=== PATIENT | female | born 1945 | race African-American/Black ===

== ENCOUNTER 2024-02-12 10:18 | Emergency (ER) | payer OTHER, MEDICAID ==
[~2024-02-12] VITALS: Ht 170.2 cm; Wt 67.3 kg
[~2024-02-12 10:18] MED LIST: LOSA-381 PO; PANT-31 PO
[2024-02-12 10:30] VITALS: TEMP 98.5
[2024-02-12] MEDS: LORazepam 2 MG/ML VIAL IVP ONE (11:12)
[2024-02-12 11:14] LABS: HEMATOCRIT 27.9 % (36-46); HEMOGLOBIN 8.8 g/dL (12.0-16.0); MEAN CORPUSCULAR HEMOGLOBIN 20.7 pg (26.0-34.0); MEAN CORPUSCULAR HGB CONC 31.5 G/dL (31.0-37.0); MEAN CORPUSCULAR VOLUME 66 fL (80-100); PLATELET COUNT (AUTO) 330 K/uL (150-450); RED BLOOD CELL COUNT(AUTO) 4.25 MIL/uL (4.00-5.20); RED CELL DISTRIBUTION WIDTH 25.3 % (11.5-14.5); WHITE BLOOD COUNT (AUTO) 6.1 K/uL (4.5-11.0)
[2024-02-12 11:20] LABS: PROTHROMBIN TIME 11.4 SEC (9.4-11.6)
[2024-02-12 11:25] LABS: BAND NEUTROPHILS % (MANUAL) 1 % (0-5); LYMPHOCYTES % (MANUAL) 39 % (22-44); MONOCYTES % (MANUAL) 3 % (2-9); SEGMENTED NEUTROPHILS % 57 % (40-70); TOTAL CELLS COUNTED 100
[2024-02-12 11:26] LABS: RBC MORPHOLOGY COMMENT ABNORMAL RBC MORPH
[2024-02-12 11:35] LABS: ANION GAP 10 mmol/L (8-16); CALCIUM, TOTAL 9.3 mg/dL (8.8-10.5); CARBON DIOXIDE 28 mmol/L (22-29); CHLORIDE 105 mmol/L (98-107); CREATININE 0.66 mg/dL (0.60-1.30); GLOMERULAR FILTR. RATE CALC > 60 mL/min (>60); GLUCOSE,RANDOM 87 mg/dL (70-110); POTASSIUM 3.5 mmol/L (3.5-5.1); SODIUM SERUM 143 mmol/L (136-145); UREA NITROGEN, BLOOD 10 mg/dL (7-18)
[2024-02-12 11:42] LABS: ALANINE AMINOTRANSFERASE 8 U/L (12-78); ALKALINE PHOSPHATASE 68 U/L (46-116); ASPARTATE AMINOTRANSFERASE 13 U/L (15-37); BILIRUBIN,TOTAL 0.7 mg/dL (0.1-1.0); CHOL/HDL RATIO 6.4 (3.9-5.7); CHOLESTEROL 300 mg/dL (131-200); HDL CHOLESTEROL 47 mg/dL (40-60); LDL CHOL (CALC.) 227 mg/dL (0-130); TOTAL PROTEIN, SERUM 6.7 g/dL (6.4-8.2); TRIGLYCERIDES 132 mg/dL (15-150); TROPONIN I-HIGH SENSITIVITY 6 ng/L (<51)
[2024-02-12 12:15] LABS: COVID AG,FIA SOURCE NASAL SWAB
[2024-02-12 12:30] LABS: AMMONIA < 10 umol/L (11-32)
[2024-02-12 12:48] LABS: APPEARANCE,URINE HAZY (CLEAR); BILIRUBIN,URINE NEGATIVE (NEGATIVE); COLOR,URINE YELLOW (YELLOW); GLUCOSE, URINE (UA) NEGATIVE (NEGATIVE); KETONES,URINE NEGATIVE (NEGATIVE); LEUKOCYTE ESTERASE ,URINE NEGATIVE (NEGATIVE); NITRATE,URINE NEGATIVE (NEGATIVE); OCCULT BLOOD,URINE NEGATIVE (NEGATIVE); PROTEIN,URINE 30-70 mg/dL (NEGATIVE); UROBILINOGEN,URINE <=1.0 mg/dL (<=1.0)
[2024-02-12 12:50] LABS: SPECIFIC GRAVITIY, URINE > 1.030 (1.003-1.030)
[2024-02-12 12:52] LABS: BARBITURATE SCREEN, URINE NEGATIVE (NEGATIVE); METHADONE SCREEN, URINE NEGATIVE (NEGATIVE)
[2024-02-12 13:01] LABS: AMPHET/METH SCREEN,URINE NEGATIVE (NEGATIVE); BENZODIAZEPINES SCREEN,URINE NEGATIVE (NEGATIVE); COCAINE SCREEN,URINE NEGATIVE (NEGATIVE); OPIATE SCREEN,URINE NEGATIVE (NEGATIVE); PHENCYCLIDINE SCREEN,URINE NEGATIVE (NEGATIVE)
[2024-02-12 13:03] LABS: ALCOHOL, URINE DRUG SCREEN NEGATIVE (NEGATIVE); BACTERIA,URINE None Seen /HPF (None Seen); MUCUS,URINE Few LPF (None Seen); RBC,URINE 0-2 /HPF (0-2); SQUAMOUS EPITHELIAL CELL,UR Few /LPF (None Seen); WBC,URINE None Seen /HPF (0-5)
[2024-02-12 13:17] LABS: CANNABINOID SCREEN,URINE NEGATIVE (NEGATIVE)
[2024-02-12 13:31] LABS: SARS-COV2 (COVID) ANTIGEN,FIA Negative (Negative)
[2024-02-12] MEDS: ASPIRIN 81 MG CHEWABLE TABLET PO ONE (16:01)
[2024-02-12 17:08] VITALS: BP 145/78; PULSE 81; RESP 20; O2SAT 98
== END 2024-02-12 17:38 | disposition short-term general hospital (02) ==
LOC: EMS 10:18
DX: G92.8 Other toxic encephalopathy (principal); F03.90 Unspecified dementia, unspecified severity, without behavioral disturbance, psychotic disturbance, mood disturbance, and anxiety; I10 Essential (primary) hypertension; Z86.718 Personal history of other venous thrombosis and embolism; Z20.822 Contact with and (suspected) exposure to COVID-19
CPT/HCPCS: 99291; 70496; 95816; 96374; 71045; 87426; 80061; 80053; 81001; 82140; 84484; 85025; 85610; 85730; 86850; 86900; 86901; 36415; 70498; 82948; 93005; 80307; 70450; G0480; J2060

== ENCOUNTER → 2024-04-15 | Emergency (ER) | payer OTHER ==
[~2024-04-15] VITALS: Ht 160 cm; Wt 68.6 kg
[~2024-04-15] MED LIST changes: +IOHEXOL 350 MG/ML 100 ML VIAL ONE; +LORazepam 2 MG/ML VIAL IVP ONE; +SODIUM CHLORIDE 0.9% 100 ML ONE
[2024-04-15 12:26] VITALS: TEMP 97.7
[2024-04-15 12:43] LABS: ANION GAP 4 mmol/L (8-16); CARBON DIOXIDE 33 mmol/L (22-29); CHLORIDE 104 mmol/L (98-107); CREATININE 0.77 mg/dL (0.60-1.30); GLOMERULAR FILTR. RATE CALC > 60 mL/min (>60); GLUCOSE,RANDOM 87 mg/dL (70-110); POTASSIUM 3.9 mmol/L (3.5-5.1); SODIUM SERUM 141 mmol/L (136-145); UREA NITROGEN, BLOOD 11 mg/dL (7-18)
[2024-04-15 12:44] LABS: CALCIUM, TOTAL 9.5 mg/dL (8.8-10.5)
[2024-04-15 12:52] LABS: BASOPHILS % (AUTO) 0.8 % (0.0-2.0); EOSINOPHILS % (AUTO) 1.4 % (1.0-6.0); HEMATOCRIT 36.8 % (36-46); HEMOGLOBIN 11.2 g/dL (12.0-16.0); LYMPHOCYTES # (AUTO) 2.4 K/uL (1.0-4.8); MEAN CORPUSCULAR HEMOGLOBIN 21.8 pg (26.0-34.0); MEAN CORPUSCULAR HGB CONC 30.5 G/dL (31.0-37.0); MEAN CORPUSCULAR VOLUME 71 fL (80-100); MONOCYTES # (AUTO) 0.4 K/uL (0.1-1.0); MONOCYTES % (AUTO) 6.8 % (2.0-9.0); NEUTROPHILS # (AUTO) 2.6 K/uL (1.8-7.7); PLATELET COUNT (AUTO) 250 K/uL (150-450); RED BLOOD CELL COUNT(AUTO) 5.16 MIL/uL (4.00-5.20); RED CELL DISTRIBUTION WIDTH 22.2 % (11.5-14.5); WHITE BLOOD COUNT (AUTO) 5.5 K/uL (4.5-11.0)
[2024-04-15 12:55] LABS: ALANINE AMINOTRANSFERASE 9 U/L (12-78); ALBUMIN 2.8 g/dL (3.4-5.0); ALKALINE PHOSPHATASE 55 U/L (46-116); ASPARTATE AMINOTRANSFERASE 11 U/L (15-37); BILIRUBIN,TOTAL 0.5 mg/dL (0.1-1.0); CHOL/HDL RATIO 5.2 (3.9-5.7); CHOLESTEROL 273 mg/dL (131-200); HDL CHOLESTEROL 53 mg/dL (40-60); LDL CHOL (CALC.) 199 mg/dL (0-130); TOTAL PROTEIN, SERUM 6.8 g/dL (6.4-8.2); TRIGLYCERIDES 104 mg/dL (15-150); TROPONIN I-HIGH SENSITIVITY 6 ng/L (<51)
[2024-04-15 13:39] LABS: RBC MORPHOLOGY COMMENT ABNORMAL RBC MORPH
[2024-04-15 13:54] LABS: VALPROIC ACID 5 mcg/mL (50-100)
[2024-04-15 14:20] VITALS: BP 138/68; PULSE 89; RESP 18; O2SAT 96
[2024-04-15] MEDS: VALPROATE SODIUM 1,000 MG in DEXTROSE 5%-WATER 100 ML IV ONE (14:32)
== END | disposition short-term general hospital (02) ==
LOC: EMS 12:05
DX: G93.40 Encephalopathy, unspecified (principal); R53.1 Weakness; R47.81 Slurred speech; I11.9 Hypertensive heart disease without heart failure; Z86.718 Personal history of other venous thrombosis and embolism; Z79.899 Other long term (current) drug therapy
CPT/HCPCS: 99291; 70496; 96365; 71045; 80061; 80053; 80164; 84484; 85025; 85610; 85730; 86850; 86900; 86901; 36415; 70498; 82962; 93005; 70450; Q9967; J2060; J3490; J7060; J7050; 82948